=== PATIENT | male | born 1965 | race Caucasian/White ===

== ENCOUNTER 2018-06-05 12:39 | Observation (INO) | payer SELFPAY ==
[2018-06-05] MEDS ORDERED: Sodium Chloride 0.9% 2.5 ML Syringe FLUSH PRN (12:42)
[2018-06-05] MEDS ORDERED: Aspirin 81 MG Tab.Chew PO ONE (12:42)
[2018-06-05] MEDS ORDERED: Sodium Chloride 0.9% 10 ML Syringe FLUSH PRN (12:42)
--- NOTE | 2018-06-05 12:45 | EDM.PDOC ---
ED HPI GENERAL MEDICAL PROBLEM - General Stated Complaint: CHEST PAIN Time Seen by Provider: 06/05/18 12:41 - History of Present Illness INITIAL COMMENTS - FREE TEXT/NARRATIVE: HISTORY AND PHYSICAL: History of present illness: Patient 53-year-old male history of atrial fibrillation presents concern of chest pain he states he awoke with this vaguely described he states there is an exertional component with associated shortness of breath he denies diaphoresis nausea vomiting he denies other concern he states he was drinking quite a bit yesterday and feels this may have aggravated this Review of systems: As per history of present illness and below otherwise all systems reviewed and negative. Past medical history: As per history of present illness and as reviewed below otherwise noncontributory. Surgical history: As per history of present illness and as reviewed below otherwise noncontributory. Social history: No reported history of drug or alcohol abuse. Family history: As per history of present illness and as reviewed below otherwise noncontributory. Physical exam: HEENT: Atraumatic, normocephalic, pupils reactive, negative for conjunctival pallor or scleral icterus, mucous membranes moist, throat clear, neck supple, nontender, trachea midline. Lungs: Clear to auscultation, breath sounds equal bilaterally, chest nontender. Heart: S1S2, irregularly irregular, negative for clicks, rubs, or JVD. Abdomen: Soft, nondistended, nontender. Negative for masses or hepatosplenomegaly. Negative for costovertebral tenderness. Pelvis: Stable nontender. Genitourinary: Deferred. Rectal: Deferred. Extremities: Atraumatic, negative for cords or calf pain. Neurovascular unremarkable. Neuro: Awake, alert, oriented. Cranial nerves II through XII unremarkable. Cerebellum unremarkable. Motor and sensory unremarkable throughout. Exam nonfocal. Diagnostics: CBC CMP troponin PT/INR chest x-ray EKG Therapeutics: IV O2 monitor aspirin 324 mg Impression: #1 chest pain #2 history of atrial fibrillation Definitive disposition and diagnosis as appropriate pending reevaluation and review of above. Left Chest Pain Score (Numeric/FACES): 2 - Related Data Allergies Allergy/AdvReac Type Severity Reaction Status Date / Time No Known Allergies Allergy Verified 06/05/18 13:00 Home Meds: Home Meds Aspirin 325 mg PO DAILY 06/05/18 [History] Diltiazem HCl [Cartia Xt] 120 mg PO DAILY 06/05/18 [History] atorvaSTATin [Lipitor] 40 mg PO BEDTIME 06/05/18 [History] ED ROS GENERAL - Review of Systems Review Of Systems: ROS reveals no pertinent complaints other than HPI. ED EXAM, GENERAL - Physical Exam Exam: See Below (See dictation) Course - Vital Signs Last Recorded V/S: Last Vital Signs Temp 36.5 C 06/05/18 15:02 Pulse 126 H 06/05/18 16:19 Resp 18 06/05/18 15:02 BP 117/79 06/05/18 16:19 Pulse Ox 98 06/05/18 15:13 - Orders/Labs/Meds Orders: Active Orders 24 hr Category Date Time Status Patient Status [ADT] Stat ADT 06/05/18 13:40 Active Cardiac Monitoring [RC] Q8H Care 06/05/18 12:41 Active EKG Documentation Completion [RC] STAT Care 06/05/18 12:41 Active Sodium Chloride 0.9% [Saline Flush] Med 06/05/18 12:42 Active 10 ml FLUSH ASDIRECTED PRN Sodium Chloride 0.9% [Saline Flush] Med 06/05/18 12:42 Active 2.5 ml FLUSH ASDIRECTED PRN Saline Lock Insert [OM.PC] Stat Oth 06/05/18 12:41 Ordered Medication Orders Albuterol/Ipratropium (Duoneb 3.0-0.5 Mg/3 Ml) 3 ml NEB Q4HRRT PRN PRN Reason: Shortness Of Breath/wheezing Apixaban (Eliquis) 5 mg PO BID [facility] Last Admin: 06/05/18 16:22 Dose: 5 mg Aspirin (Aspirin) 325 mg PO DAILY [facility] Atorvastatin Calcium (Lipitor) 40 mg PO BEDTIME [facility] Diltiazem HCl (Cardizem Cd) 120 mg PO DAILY [facility] Diltiazem HCl (Cardizem Cd) 120 mg PO DAILY [facility] Last Admin: 06/05/18 16:19 Dose: 120 mg Morphine Sulfate (Morphine) 2 mg IVPUSH Q2H PRN PRN Reason: Pain (severe 7-10) Stop: 06/06/18 15:13 Oxycodone HCl (Oxycodone) 5 mg PO Q4H PRN PRN Reason: Pain (moderate 4-6) Sodium Chloride (Saline Flush) 10 ml FLUSH ASDIRECTED PRN PRN Reason: Keep Vein Open Sodium Chloride (Saline Flush) 2.5 ml FLUSH ASDIRECTED PRN PRN Reason: Keep Vein Open Labs: Laboratory Tests 06/05/18 06/05/18 06/05/18 Range/Units 12:50 12:50 12:50 WBC (4.0-11.0) K/uL RBC (4.50-5.90) M/uL Hgb (13.0-17.0) g/dL Hct (38.0-50.0) % MCV (80.0-98.0) fL MCH (27.0-32.0) pg MCHC (31.0-37.0) g/dL RDW Std Deviation (28.0-62.0) fl RDW Coeff of Adali (11.0-15.0) % Plt Count (150-400) K/uL MPV (7.40-12.00) fL Neut % (Auto) (48.0-80.0) % Lymph % (Auto) (16.0-40.0) % [place] % (Auto) (0.0-15.0) % Eos % (Auto) (0.0-7.0) % Baso % (Auto) (0.0-1.5) % Neut # (Auto) (1.4-5.7) K/uL Lymph # (Auto) (0.6-2.4) K/uL [place] # (Auto) (0.0-0.8) K/uL Eos # (Auto) (0.0-0.7) K/uL Baso # (Auto) (0.0-0.1) K/uL Nucleated RBC % /100WBC Nucleated RBCs # K/uL INR 1.01 Sodium 138 (136-148) mmol/L Potassium 3.6 (3.5-5.1) mmol/L Chloride 104 (98-107) mmol/L Carbon Dioxide 23.8 (21.0-32.0) mmol/L BUN 15 (7.0-18.0) mg/dL Creatinine 1.7 H (0.8-1.3) mg/dL Est Cr Clr Drug Dosing 47.25 mL/min Estimated GFR (MDRD) 42.1 ml/min Glucose 142 H (74-106) mg/dL Calcium 9.2 (8.5-10.1) mg/dL Total Bilirubin 0.7 (0.2-1.0) mg/dL AST 26 (15-37) IU/L ALT 34 (14-63) IU/L Alkaline Phosphatase 118 H (46-116) U/L Troponin I < 0.050 (0.000-0.056) ng/mL Total Protein 7.9 (6.4-8.2) g/dL Albumin 4.5 (3.4-5.0) g/dL Globulin 3.4 (2.0-3.5) g/dL Albumin/Globulin Ratio 1.3 (1.3-2.8) Triglycerides 121 (0-200) mg/dL Cholesterol 227 H (50-200) mg/dL LDL Cholesterol, Calc 138 (60-180) mg/dL VLDL Cholesterol 24 (5-55) mg/dL HDL Cholesterol 65 H (40-60) mg/dL Cholesterol/HDL Ratio 3.5 (3.3-6.0) / Range/Units 12:51 WBC 13.15 H (4.0-11.0) K/uL RBC 5.47 (4.50-5.90) M/uL Hgb 18.4 H (13.0-17.0) g/dL Hct 50.6 H (38.0-50.0) % MCV 92.5 (80.0-98.0) fL MCH 33.6 H (27.0-32.0) pg MCHC 36.4 (31.0-37.0) g/dL RDW Std Deviation 44.6 (28.0-62.0) fl RDW Coeff of Adali 13 (11.0-15.0) % Plt Count 290 (150-400) K/uL MPV 10.00 (7.40-12.00) fL Neut % (Auto) 80.4 H (48.0-80.0) % Lymph % (Auto) 10.3 L (16.0-40.0) % [place] % (Auto) 8.2 (0.0-15.0) % Eos % (Auto) 0.8 (0.0-7.0) % Baso % (Auto) 0.3 (0.0-1.5) % Neut # (Auto) 10.6 H (1.4-5.7) K/uL Lymph # (Auto) 1.4 (0.6-2.4) K/uL [place] # (Auto) 1.1 H (0.0-0.8) K/uL Eos # (Auto) 0.1 (0.0-0.7) K/uL Baso # (Auto) 0.0 (0.0-0.1) K/uL Nucleated RBC % 0.0 /100WBC Nucleated RBCs # 0 K/uL INR Sodium (136-148) mmol/L Potassium (3.5-5.1) mmol/L Chloride (98-107) mmol/L Carbon Dioxide (21.0-32.0) mmol/L BUN (7.0-18.0) mg/dL Creatinine (0.8-1.3) mg/dL Est Cr Clr Drug Dosing mL/min Estimated GFR (MDRD) ml/min Glucose (74-106) mg/dL Calcium (8.5-10.1) mg/dL Total Bilirubin (0.2-1.0) mg/dL AST (15-37) IU/L ALT (14-63) IU/L Alkaline Phosphatase (46-116) U/L Troponin I (0.000-0.056) ng/mL Total Protein (6.4-8.2) g/dL Albumin (3.4-5.0) g/dL Globulin (2.0-3.5) g/dL Albumin/Globulin Ratio (1.3-2.8) Triglycerides (0-200) mg/dL Cholesterol (50-200) mg/dL LDL Cholesterol, Calc (60-180) mg/dL VLDL Cholesterol (5-55) mg/dL HDL Cholesterol (40-60) mg/dL Cholesterol/HDL Ratio (3.3-6.0) Meds: Medications Generic Name Dose Route Start Last Admin Trade Name Freq PRN Reason Stop Dose Admin Albuterol/Ipratropium 3 ml 06/05/18 15:12 Duoneb 3.0-0.5 Mg/3 Ml NEB Q4HRRT PRN Shortness Of Breath/wheezing Apixaban 5 mg 06/05/18 16:30 06/05/18 16:22 Eliquis PO 5 mg BID [facility] Administration Aspirin 325 mg 06/06/18 09:00 Aspirin PO DAILY [facility] Atorvastatin Calcium 40 mg 06/05/18 21:00 Lipitor PO BEDTIME [facility] Diltiazem HCl 120 mg 06/06/18 09:00 Cardizem Cd PO DAILY [facility] Diltiazem HCl 120 mg 06/05/18 16:15 06/05/18 16:19 Cardizem Cd PO 120 mg DAILY [facility] Administration Morphine Sulfate 2 mg 06/05/18 15:12 Morphine IVPUSH 06/06/18 15:13 Q2H PRN Pain (severe 7-10) Oxycodone HCl 5 mg 06/05/18 15:12 Oxycodone PO Q4H PRN Pain (moderate 4-6) Sodium Chloride 10 ml 06/05/18 12:42 Saline Flush FLUSH ASDIRECTED PRN Keep Vein Open Sodium Chloride 2.5 ml 06/05/18 12:42 Saline Flush FLUSH ASDIRECTED PRN Keep Vein Open Discontinued Medications Generic Name Dose Route Start Last Admin Trade Name Freq PRN Reason Stop Dose Admin Aspirin 324 mg 06/05/18 12:42 06/05/18 13:10 Aspirin PO 06/05/18 12:43 324 mg ONETIME ONE Administration Diltiazem HCl 20 mg 06/05/18 13:40 06/05/18 13:47 Diltiazem IVPUSH 06/05/18 13:41 20 mg ONETIME ONE Administration Sodium Chloride 1,000 mls @ 999 mls/hr 06/05/18 13:53 06/05/18 14:08 Normal Saline IV 06/05/18 14:53 999 mls/hr STAT ONE Administration Departure - Departure Time of Disposition: 16:36 Disposition: Admitted As Inpatient 64 Condition: Good Clinical Impression: Atypical chest pain, Atrial fibrillation with rapid ventricular response - Discharge Information - My Orders Last 24 Hours: My Active Orders 06/05/18 12:41 Cardiac Monitoring [RC] Q8H EKG Documentation Completion [RC] STAT Saline Lock Insert [OM.PC] Stat 06/05/18 12:42 Sodium Chloride 0.9% [Saline Flush] 10 ml FLUSH ASDIRECTED PRN Sodium Chloride 0.9% [Saline Flush] 2.5 ml FLUSH ASDIRECTED PRN 06/05/18 13:40 Patient Status [ADT] Stat - Assessment/Plan Last 24 Hours: My Active Orders 06/05/18 12:41 Cardiac Monitoring [RC] Q8H EKG Documentation Completion [RC] STAT Saline Lock Insert [OM.PC] Stat 06/05/18 12:42 Sodium Chloride 0.9% [Saline Flush] 10 ml FLUSH ASDIRECTED PRN Sodium Chloride 0.9% [Saline Flush] 2.5 ml FLUSH ASDIRECTED PRN 06/05/18 13:40 Patient Status [ADT] Stat
[2018-06-05 13:30] LABS: CHLORIDE,CL 104 mmol/L (98-107); SODIUM,NA 138 mmol/L (136-148)
--- NOTE | 2018-06-05 13:36 | CR ---
EXAMINATION: Portable chest radiograph. HISTORY: Shortness of breath. FINDINGS: The trachea is midline. The cardiomediastinal silhouette is within normal limits. No pulmonary infilt rates, effusions or pneumothorax. Mild interstitial prominence. Osseous structures appear unremarkable. IMPRESSION: No acute cardiopulmonary process.
[2018-06-05] MEDS ORDERED: Diltiazem 25 MG/5 ML SDV IVPUSH ONE (13:40)
[2018-06-05] MEDS ORDERED: Sodium Chloride 0.9% 1,000 ML IV ONE (13:53)
[2018-06-05] MEDS ORDERED: Albuterol/Ipratropium 3.0-0.5 MG/3 ML Neb Soln NEB PRN (15:12)
[2018-06-05] MEDS ORDERED: oxyCODONE 5 MG Tab PO PRN (15:12)
[2018-06-05] MEDS ORDERED: Morphine 2 MG/ML Syringe IVPUSH PRN (15:12)
[2018-06-05] MEDS: Diltiazem 120 MG Cap.CD PO SCH (16:19)
[2018-06-05] MEDS: Apixaban 5 MG Tab PO SCH ×2 (16:22→20:44)
[2018-06-05] MEDS ORDERED: Metoprolol Tartrate 5 MG/5 ML SDV IVPUSH PRN (17:30)
[2018-06-05] MEDS ORDERED: Digoxin 500 MCG/2 ML Amp IVPUSH ONE (18:22)
[2018-06-05] MEDS ORDERED: MVI, Adult with Vitamin K 10 ML, Thiamine 100 MG, Folic Acid 1 MG in Sodium Chloride 0.... IV ONE ×4 (18:24)
[2018-06-05] MEDS ORDERED: Sodium Chloride 0.9% 1,000 ML IV SCH (18:30)
[2018-06-05] MEDS ORDERED: LORazepam 2 MG/ML SDV IVPUSH PRN ×2 (20:38→21:13)
[2018-06-05] MEDS ORDERED: atorvaSTATin 40 MG Tab PO SCH (21:00)
--- NOTE | 2018-06-05 23:58 | PCM.SN ---
- Free Text/Narrative Note: [id number]
--- NOTE | 2018-06-06 01:01 | HP ---
DATE OF : 1965 PRIMARY CARE PHYSICIAN: Unknown PCP HISTORY OF PRESENT ILLNESS: The patient is a 53 years old man presented to emergency room because he felt lightheaded today, and he had chest pain around his heart and felt his heart was pounding. His symptoms started when he woke up. There had no radiation of the chest pain. The patient states that yesterday he drank a pint of vodka with 2 L of Mountain Dew. He works mowing lawns and he had a friend who brought him to hospital. He had chest pain all morning on and off. It was like squeezing his heart The patient has history of atrial fibrillation since 2007, and currently he is not on any anticoagulation and his heart rate is controlled with diltiazem 120 mg a day. He did not have any other of Afib with RVR that he is aware since 3 years ago unless he forgets to take his medication REVIEW OF SYSTEMS: A 12-point review of system is negative except as in history of present illness. PAST MEDICAL HISTORY: 1. Atrial fibrillation. 2. Hyperlipidemia. PAST SURGICAL HISTORY: He has detached retina left eye and the attachment and currently he suffers double vision. He has headache and sometimes he flickering on his visual field.. SOCIAL HISTORY: He does not smoke. Alcohol use occasionally, and the last drink was yesterday. He used mostly beer every couple of days and the patient says that he does not suffer from withdrawal. Drugs, none. FAMILY HISTORY: His mom suffered from rheumatoid arthritis, and his father had heart disease and of heart failure at age 64. PHYSICAL EXAMINATION: VITAL SIGNS: At admission, the patient had a temperature of 36.5, pulse 126, and respiratory rate 18, blood pressure 117/79, pulse oximetry 98. HEENT: Head is atraumatic and normocephalic. Pupils equally reactive to light. NECK: Supple. No lymphadenopathy. No thyromegaly. HEART: S1 and S2. Irregular rhythm and rate. Tachycardic. LUNGS: Clear to auscultation bilaterally. ABDOMEN: Soft, nontender. Positive bowel sounds. EXTREMITIES: No edema. NEUROLOGIC: The patient is alert and oriented x3. There is no gross neurological deficits. LABORATORY DATA: At admission his WBC 13.15, hemoglobin 18.4, hematocrit 50.6, and platelet count is 290. INR is 1.01. Sodium 138, potassium 2.6, chloride 108, carbon dioxide 23.8, BUN 15, creatinine is 1.7, glucose 142, calcium 9.2, total bilirubin 0.7, AST 26, ALT 34, alkaline phosphatase 118. Troponin less than 0.050. Total protein 7.9, albumin 4.5, globulin 3.4, and triglycerides 121, total cholesterol 227, LDL 138, VLDL 24, HDL 65. Toxicology is negative, ethyl alcohol is less than 3. EKG show a supraventricular tachycardia at 169, ventricular premature complex, with short NH interval QTc 468, QT 278, QRS 84, NH 152 ASSESSMENT AND PLAN: Atrial fibrillation with rapid ventricular rate. We will admit the patient to medical floor and we will give the patient Cardizem 120 mg p.o. one dose. Currently, his heart rate is 120 after he received CARDIAZEM IV in ER . We will call Cardiology consult. We will also start the patient on apixaban 5 mg p.o. b.i.d. We will order cardiac echo and if the patient continues to have heart rate more than 130, we will transfer the patient to ICU for Cardiazem drip unless Cardiology will manage patient on the floor . For chest pain RR/O ACS, the patient received aspirin 324 mg p.o. one time in the emergency room. We will follow up lipid profile and hemoglobin A1c, monitor troponins, and we will monitor the patient in telemetry. We will control the heart rate. For deep vein thrombosis prophylaxis, the patient was started on apixaban 5 mg p.o. b.i.d. For alcohol abuse, the patient will be started on CIWA protocol and also we will give patient a banana bag. NADEEM / MONICA /[id number] TETE
[2018-06-06 02:21] LABS: CHLORIDE,CL 107 mmol/L (98-107); SODIUM,NA 140 mmol/L (136-148)
[2018-06-06] MEDS ORDERED: Digoxin 250 MCG Tab PO SCH (09:00)
[2018-06-06] MEDS ORDERED: Aspirin 325 MG Tab PO SCH (09:00)
[2018-06-06] MEDS ORDERED: Diltiazem 120 MG Cap.CD PO SCH (09:00)
[2018-06-06] MEDS: Apixaban 5 MG Tab PO SCH (09:37)
[2018-06-06] MEDS: Diltiazem 120 MG Cap.CD PO SCH (09:37)
--- NOTE | 2018-06-06 09:44 | CONS ---
DATE OF CONSULTATION: DATE OF : 1965 PRIMARY CARE PHYSICIAN: Unknown PCP REASON FOR CONSULTATION: Atrial fibrillation with RVR. HISTORY OF PRESENT ILLNESS: This is a 53-year-old male, who has a history of chronic persistent atrial fibrillation, hyperlipidemia, alcoholic abuse, as well as he came into the emergency room because of feeling of palpitations and heart racing that woke him up this morning. He stated that he felt mild chest pain with the heart racing as well. He feels like some squeezing on the left-sided chest wall, did not radiate. He feels some shortness of breath, but no passing out. He feels some dizziness. When he came to the emergency room, he was found to have atrial fibrillation with RVR with a heart rate of 175, and he was given Cardizem 20 IV, his heart rate down to 70, however, the blood pressure also dropping, and he was admitted to the hospital. We did not have the prior EKG to compare, however, he stated that he was told that he had an atrial fibrillation since 2007, and he came to the emergency room one time, not here in [place] in 2014 for atrial fibrillation and dizziness. He denied history of a cardioversion in the past. He also saw a child watch attendant last time few months ago in [place], and he was told that everything was fine, nothing changed. His medications at home including simvastatin, aspirin, Cardizem 120 once a day, and he stated that he has a treadmill stress test in the past as well as a heart monitor, but he denied having the blockage, heart attack or having the angiogram in the past. He has never been on Coumadin. He stated that he drinks pretty much every day, three or four beers a day, he stated that ranging between 25 ounces to 40 ounces a day and on the weekend he drinks a lot more, and the night before the day of admission, he was drinking 2 L of Mountain Dew as well as one pint of vodka, mixing altogether and drinking all alone. SOCIAL HISTORY: He is drinking alcohol every day and he lives in a sober house in [place]. He is just here for work and he will be going back in August. Smoking, he denies smoking. He denied drug use as well. PAST MEDICAL HISTORY: Including hyperlipidemia, chronic persistent atrial fibrillation. FAMILY HISTORY: Father had a history of heart failure, hyperlipidemia. Mother has a history of stroke. PHYSICAL EXAMINATION: VITAL SIGNS: Initial blood pressure is 82/57 with a heart rate of 175, but is improving to 124/77 with a heart rate of 117 after Cardizem IV push 20 mg, and O2 saturation is 97 to 98 on room air, temperature is 36.8, respiration is 18. HEENT: Not pale. No jaundice. Mouth, dry. No JVD. HEART: Normal S1, S2. Tachycardia. Totally irregular. LUNGS: Clear. No crackles. No wheezing. ABDOMEN: Soft, nontender. Bowel sounds are present. No hepatosplenomegaly. LEGS: No edema. LABORATORY INVESTIGATION: CBC showed WBC 13, hematocrit of 50, hemoglobin of 18, platelet 290. INR 1.01. Sodium 138, potassium 3.6, chloride 104, bicarb 23, BUN 15, creatinine 1.7. A1c 5.4. Troponin was negative x1. Total cholesterol 227, LDL is 138, HDL 65. Alcohol is negative. Urine drug screening is negative as well. EKG show atrial fibrillation with RVR. CURRENT MEDICATIONS: Including, 1. Eliquis was started in the hospital, 5 mg twice a day. 2. As well as Cardizem 120 mg p.o. one time dose. This is a 53-year-old male, alcoholic abuse, presented to hospital with history of hyperlipidemia and chronic persistent atrial fibrillation, presented to the hospital with atrial fibrillation with RVR. Unclear of prior cardiac history, but we will do the rate control for now, I agree with the anticoagulation with Eliquis 5 twice a day. I am not certain about his compliance to the medication. I would lean toward more on the rate control approach for him and we will add one more digoxin 250 once a day. His atrial fibrillation with RVR could be contributed by alcohol abuse as well as the caffeine consumption. I will also recommend a troponin cycle, cycling cardiac troponin as well as doing the echocardiogram. He looks dehydrated to me. He needs to be hydrated with IV fluids with a banana bags as well. His A1c is 5.4. LUZ ANDERSON /[id number]
--- NOTE | 2018-06-06 20:43 | PCM.DCSUM1 ---
Discharge Summary - Hospital Course Diagnosis: Stroke: No - Discharge Data Discharge Disposition: Home, Self-Care 01 Condition: Stable - Patient Summary/Data Consults: Consultations 06/05/18 17:27 Consult to Physician [CONS] Routine - Patient Instructions Diet: Usual Diet as Tolerated Activity: As Tolerated Driving: May Drive Today - Discharge Plan Home Medications: Home Meds Aspirin 325 mg PO DAILY 06/05/18 [History] Diltiazem HCl [Cartia Xt] 120 mg PO DAILY 06/05/18 [History] atorvaSTATin [Lipitor] 40 mg PO BEDTIME 06/05/18 [History] Patient Handouts: Nonspecific Chest Pain, [id number] Referrals: Paz Pineda MD [Physician] - 06/30/18 8:00 am Martín Dickson MD [Physician] - 06/23/18 9:00 am - Patient Data Vitals - Most Recent: Last Vital Signs Temp 98.1 F 06/06/18 12:00 Pulse 83 06/06/18 12:00 Resp 20 06/06/18 12:00 BP 114/82 06/06/18 12:00 Pulse Ox 97 06/06/18 12:00 Weight - Most Recent: 330 lb 11.094 oz I&O - Last 24 hours: Intake & Output 06/06/18 06/06/18 06/06/18 06:59 14:59 22:59 Intake Total 2382 Output Total 200 Balance 2182 Lab Results - Last 24 hrs: Laboratory Results - last 24 hr 06/05/18 06/06/18 06/06/18 Range/Units 21:34 01:15 01:15 WBC 7.81 (4.0-11.0) K/uL RBC 4.22 L (4.50-5.90) M/uL Hgb 14.2 (13.0-17.0) g/dL Hct 40.2 (38.0-50.0) % MCV 95.3 (80.0-98.0) fL MCH 33.6 H (27.0-32.0) pg MCHC 35.3 (31.0-37.0) g/dL RDW Std Deviation 43.2 (28.0-62.0) fl RDW Coeff of Adali 13 (11.0-15.0) % Plt Count 211 (150-400) K/uL MPV 9.50 (7.40-12.00) fL Neut % (Auto) 57.7 (48.0-80.0) % Lymph % (Auto) 28.7 (16.0-40.0) % Andrew % (Auto) 9.9 (0.0-15.0) % Eos % (Auto) 3.3 (0.0-7.0) % Baso % (Auto) 0.4 (0.0-1.5) % Neut # (Auto) 4.5 (1.4-5.7) K/uL Lymph # (Auto) 2.2 (0.6-2.4) K/uL Andrew # (Auto) 0.8 (0.0-0.8) K/uL Eos # (Auto) 0.3 (0.0-0.7) K/uL Baso # (Auto) 0.0 (0.0-0.1) K/uL Sodium 140 (136-148) mmol/L Potassium 4.0 (3.5-5.1) mmol/L Chloride 107 (98-107) mmol/L Carbon Dioxide 27.2 (21.0-32.0) mmol/L BUN 20 H (7.0-18.0) mg/dL Creatinine 1.2 (0.8-1.3) mg/dL Est Cr Clr Drug Dosing 72.95 mL/min Estimated GFR (MDRD) > 60.0 ml/min Glucose 100 (74-106) mg/dL Hemoglobin A1c (4.5-6.2) % Calcium 8.3 L (8.5-10.1) mg/dL Total Bilirubin 0.2 (0.2-1.0) mg/dL AST 15 (15-37) IU/L ALT 24 (14-63) IU/L Alkaline Phosphatase 88 (46-116) U/L Troponin I (0.000-0.056) ng/mL Total Protein 5.5 L (6.4-8.2) g/dL Albumin 3.1 L (3.4-5.0) g/dL Globulin 2.4 (2.0-3.5) g/dL Albumin/Globulin Ratio 1.3 (1.3-2.8) Urine Opiates Screen NEGATIVE (NEGATIVE) Ur Oxycodone Screen NEGATIVE (NEGATIVE) Urine Methadone Screen NEGATIVE (NEGATIVE) Ur Barbiturates Screen NEGATIVE (NEGATIVE) Ur Phencyclidine Scrn NEGATIVE (NEGATIVE) Ur Amphetamine Screen NEGATIVE (NEGATIVE) U Methamphetamines Scrn NEGATIVE (NEGATIVE) U Benzodiazepines Scrn NEGATIVE (NEGATIVE) U Cocaine Metab Screen NEGATIVE (NEGATIVE) U Marijuana (THC) Screen NEGATIVE (NEGATIVE) 06/06/18 06/06/18 Range/Units 01:15 01:15 WBC (4.0-11.0) K/uL RBC (4.50-5.90) M/uL Hgb (13.0-17.0) g/dL Hct (38.0-50.0) % MCV (80.0-98.0) fL MCH (27.0-32.0) pg MCHC (31.0-37.0) g/dL RDW Std Deviation (28.0-62.0) fl RDW Coeff of Adali (11.0-15.0) % Plt Count (150-400) K/uL MPV (7.40-12.00) fL Neut % (Auto) (48.0-80.0) % Lymph % (Auto) (16.0-40.0) % Andrew % (Auto) (0.0-15.0) % Eos % (Auto) (0.0-7.0) % Baso % (Auto) (0.0-1.5) % Neut # (Auto) (1.4-5.7) K/uL Lymph # (Auto) (0.6-2.4) K/uL Andrew # (Auto) (0.0-0.8) K/uL Eos # (Auto) (0.0-0.7) K/uL Baso # (Auto) (0.0-0.1) K/uL Sodium (136-148) mmol/L Potassium (3.5-5.1) mmol/L Chloride (98-107) mmol/L Carbon Dioxide (21.0-32.0) mmol/L BUN (7.0-18.0) mg/dL Creatinine (0.8-1.3) mg/dL Est Cr Clr Drug Dosing mL/min Estimated GFR (MDRD) ml/min Glucose (74-106) mg/dL Hemoglobin A1c 5.4 (4.5-6.2) % Calcium (8.5-10.1) mg/dL Total Bilirubin (0.2-1.0) mg/dL AST (15-37) IU/L ALT (14-63) IU/L Alkaline Phosphatase (46-116) U/L Troponin I < 0.050 (0.000-0.056) ng/mL Total Protein (6.4-8.2) g/dL Albumin (3.4-5.0) g/dL Globulin (2.0-3.5) g/dL Albumin/Globulin Ratio (1.3-2.8) Urine Opiates Screen (NEGATIVE) Ur Oxycodone Screen (NEGATIVE) Urine Methadone Screen (NEGATIVE) Ur Barbiturates Screen (NEGATIVE) Ur Phencyclidine Scrn (NEGATIVE) Ur Amphetamine Screen (NEGATIVE) U Methamphetamines Scrn (NEGATIVE) U Benzodiazepines Scrn (NEGATIVE) U Cocaine Metab Screen (NEGATIVE) U Marijuana (THC) Screen (NEGATIVE) Med Orders - Current: Current Medications Discontinued Medications Albuterol/Ipratropium (Duoneb 3.0-0.5 Mg/3 Ml) 3 ml NEB Q4HRRT PRN PRN Reason: Shortness Of Breath/wheezing Apixaban (Eliquis) 5 mg PO BID [facility] Last Admin: 06/06/18 09:37 Dose: 5 mg Aspirin (Aspirin) 324 mg PO ONETIME ONE Stop: 06/05/18 12:43 Last Admin: 06/05/18 13:10 Dose: 324 mg Aspirin (Aspirin) 325 mg PO DAILY [facility] Last Admin: 06/06/18 09:37 Dose: 325 mg Atorvastatin Calcium (Lipitor) 40 mg PO BEDTIME [facility] Last Admin: 06/05/18 20:44 Dose: 40 mg Atorvastatin Calcium (Lipitor) 20 mg PO BEDTIME [facility] Digoxin (Lanoxin) 250 mcg PO DAILY [facility] Last Admin: 06/06/18 09:37 Dose: 250 mcg Digoxin (Lanoxin) 250 mcg IVPUSH ONETIME ONE Stop: 06/05/18 18:23 Last Admin: 06/05/18 18:36 Dose: 250 mcg Diltiazem HCl (Diltiazem) 20 mg IVPUSH ONETIME ONE Stop: 06/05/18 13:41 Last Admin: 06/05/18 13:47 Dose: 20 mg Diltiazem HCl (Cardizem Cd) 120 mg PO DAILY [facility] Diltiazem HCl (Cardizem Cd) 120 mg PO DAILY [facility] Last Admin: 06/06/18 09:37 Dose: 120 mg Sodium Chloride (Normal Saline) 1,000 mls @ 999 mls/hr IV STAT ONE Stop: 06/05/18 14:53 Last Admin: 06/05/18 14:08 Dose: 999 mls/hr Multivitamins/Minerals 10 ml/Thiamine HCl 100 mg/ Folic Acid 1 mg/ Sodium Chloride 1,011.2 mls @ 75 mls/hr IV ONETIME ONE Stop: 06/06/18 07:52 Last Admin: 06/05/18 19:43 Dose: 75 mls/hr Sodium Chloride (Normal Saline) 1,000 mls @ 75 mls/hr IV ASDIRECTED ANUP Stop: 06/06/18 08:00 Last Admin: 06/05/18 18:39 Dose: 75 mls/hr Lorazepam (Ativan) 0 mg IVPUSH Q4H PRN; Protocol PRN Reason: Agitation Lorazepam (Ativan) 0 mg IVPUSH Q4H PRN; Protocol PRN Reason: Agitation Metoprolol Tartrate (Lopressor) 5 mg IVPUSH ASDIRECTED PRN PRN Reason: afib Last Admin: 06/05/18 17:43 Dose: 5 mg Morphine Sulfate (Morphine) 2 mg IVPUSH Q2H PRN PRN Reason: Pain (severe 7-10) Stop: 06/06/18 15:13 Oxycodone HCl (Oxycodone) 5 mg PO Q4H PRN PRN Reason: Pain (moderate 4-6) Sodium Chloride (Saline Flush) 10 ml FLUSH ASDIRECTED PRN PRN Reason: Keep Vein Open Sodium Chloride (Saline Flush) 2.5 ml FLUSH ASDIRECTED PRN PRN Reason: Keep Vein Open
[2018-06-06] MEDS ORDERED: atorvaSTATin 20 MG Tab PO SCH (21:00)
--- NOTE | 2018-06-08 13:46 | ECHO ---
EXAM DATE: 06/05/18 PATIENT'S AGE: 53 The echocardiogram report can be seen in this patient's EMR (Electronic Medical Record) in the Reports section. The report has also been scanned into PACs. TETE
== END 2018-06-06 14:20 | disposition home or self-care (01) ==
LOC: MW.ED 12:39 → MW.MS 14:57
PROVIDERS: ADMIT Internal Medicine; ATTEND Internal Medicine
DX: R07.9 Chest pain, unspecified (principal); I48.2 Chronic atrial fibrillation; E78.5 Hyperlipidemia, unspecified; Z79.82 Long term (current) use of aspirin; Z79.899 Other long term (current) drug therapy; Z82.49 Family history of ischemic heart disease and other diseases of the circulatory system
CPT/HCPCS: 36415; 71045; 80053; 80061; 80305; 83036; 84484; 85025; 85610; 93005; 93306; 96361; 96374; 96375; 99285; A9270; G0378; G0480; J1160; J3411; J3490; J7040; 99284

== ENCOUNTER 2018-07-04 12:46 | Emergency (ER) | payer MEDICAID ==
[2018-07-04] MEDS ORDERED: MVI, Adult with Vitamin K 10 ML, Thiamine 100 MG, Folic Acid 1 MG, Magnesium Sulfate 2 ... IV ONE ×5 (13:01)
[2018-07-04] MEDS ORDERED: Sodium Chloride 0.9% 2.5 ML Syringe FLUSH PRN (13:01)
[2018-07-04] MEDS ORDERED: Sodium Chloride 0.9% 1,000 ML IV ONE (13:01)
[2018-07-04] MEDS ORDERED: Sodium Chloride 0.9% 10 ML Syringe FLUSH PRN (13:01)
--- NOTE | 2018-07-04 13:04 | EDM.PDOC ---
ED HPI GENERAL MEDICAL PROBLEM - General Chief Complaint: Chest Pain Stated Complaint: UNKNOWN ISSUES Time Seen by Provider: 07/04/18 12:52 - History of Present Illness INITIAL COMMENTS - FREE TEXT/NARRATIVE: HISTORY AND PHYSICAL: History of present illness: The patient is a 53-year-old male with a known history of long-standing A. fib hyperlipidemia and alcohol use/abuse who was admitted to our hospital on June 05 as an observation for A. fib with RVR and chest pain. I reviewed that admission which included consultation with our site physician and echocardiogram revealing an EF of 65-70% and some mild valvular changes. The patient ruled out and was placed on Eliquis by our hospitalist, which he did not fill the prescription for because it was too expensive, and also digoxin which he has been taking along with his Cardizem. The patient presents today stating that despite his long-standing history of alcohol use and abuse he decided that he was going to quit alcohol drinking on Tuesday night, to go. He says that since that time he has had very low energy and has been trying to eat properly eating bananas and healthy food and pushing hydration but he feels like he has no energy and is laying in bed all day. He told the triage nurse that he was having intermittent chest pain which he is very vague about and some shortness of breath but on my evaluation he denied that he was having chest pain but he says that he had diffuse body aches and even moving in bed was causing discomfort in his chest and throughout his body. He has not had abdominal pain vomiting or diarrhea and no urinary complaints. He has not had any recent trauma and has no bony extremity pain neck pain or back pain. He has not had a headache fevers or chills. Patient also says that since his last admission he has significantly reduced his caffeine intake. He says that he intermittently has been feeling lightheaded and took his blood pressure prior to coming here which she says the top number was in the 80s and that is not normal for him. He did not pass out or blackout. On my evaluation he mostly complains of the diffuse body aches without focality and having no energy and feeling very drained for which he is concerned about. He has not followed up with a provider in the clinic since his last admission. Again when I push him on the chest pain he has very the in his description and does not say specifically that his left or right and is more with movement and feels more achy. Review of systems: As per history of present illness and below otherwise all systems reviewed and negative. Past medical history: As per history of present illness and as reviewed below otherwise noncontributory. Surgical history: As per history of present illness and as reviewed below otherwise noncontributory. Social history: No reported history of drug or alcohol abuse. Family history: As per history of present illness and as reviewed below otherwise noncontributory. Physical exam: General: Well-developed well-nourished thin man who is nontoxic and vital signs are noted by me. HEENT: Atraumatic, normocephalic, pupils reactive, negative for conjunctival pallor or scleral icterus, mucous membranes moist, throat clear, neck supple, nontender, trachea midline. Lungs: Clear to auscultation, breath sounds equal bilaterally, chest nontender. Heart: S1S2, regular, negative for clicks, rubs, or JVD. Abdomen: Soft, nondistended, nontender. Negative for masses or hepatosplenomegaly. NABS. Pelvis: Stable nontender. Genitourinary: Deferred. Rectal: Deferred. Extremities: Atraumatic, negative for cords or calf pain. Neurovascular unremarkable. Full range of motion without any defects or deficits Neuro: Awake, alert, oriented. Cranial nerves II through XII unremarkable. Cerebellum unremarkable. Motor and sensory unremarkable throughout. Exam nonfocal. There is no evidence of any tremulousness and patient moves easily in the ED and speaks clearly and without any verbal changes Diagnostics: EKG CBC CMP magnesium level TSH UA digoxin level troponin INR alcohol level chest x-ray Therapeutics: IV O2 monitor IV fluids aspirin banana bag Dr. Gold our site physician was consulted at 1420 and the fact that the patient was unable to afford his elbow course was discussed. As the patient is currently in sinus rhythm he does not feel that anticoagulation should be started at this time and he is happy to follow-up this patient if the patient chooses. I will discuss this under sedation with the patient The patient is aware of all testing results and after IV fluids he is feeling much improved and his comfortable with discharge home. Advised him on reasons to return to the ED and need for follow-up and he says he has seen one of our clinic providers in the past Impression: Generalized malaise body aches and weakness, mild dehydration, history of A. fib spontaneously converted, history of alcohol and caffeine use improved Definitive disposition and diagnosis as appropriate pending reevaluation and review of above. chest pain Pain Score (Numeric/FACES): 5 - Related Data Allergies Allergy/AdvReac Type Severity Reaction Status Date / Time No Known Allergies Allergy Verified 07/04/18 12:48 Home Meds: Home Meds Diltiazem HCl [Cartia Xt] 120 mg PO DAILY 06/05/18 [History] atorvaSTATin [Lipitor] 40 mg PO BEDTIME 06/05/18 [History] Apixaban [Eliquis] 5 mg PO BID 07/04/18 [History] Digoxin 250 mcg PO DAILY 07/04/18 [History] Past Medical History HEENT History: Reports: None Cardiovascular History: Reports: Afib, High Cholesterol Musculoskeletal History: Reports: Fracture - Past Surgical History HEENT Surgical History: Reports: Tonsillectomy Cardiovascular Surgical History: Reports: None Other Musculoskeletal Surgeries/Procedures:: fx R hand, L 5th digit Social & Family History - Family History Family Medical History: Noncontributory Cardiac: Reports: Heart Failure, [place] Neurological: Reports: CVA Psychiatric: Reports: None Endocrine/Metabolic: Reports: None Dermatologic: Reports: None - Tobacco Use Smoking Status *Q: Never Smoker Second Hand Smoke Exposure: No - Caffeine Use Caffeine Use: Reports: Soda, Tea - Alcohol Use Days Per Week of Alcohol Use: 5 Number of Drinks Per Day: 1 Total Drinks Per Week: 5 - Recreational Drug Use Recreational Drug Use: No ED ROS GENERAL - Review of Systems Review Of Systems: ROS reveals no pertinent complaints other than HPI. ED EXAM, GENERAL - Physical Exam Exam: See Below (See dictation) Course - Vital Signs Last Recorded V/S: Last Vital Signs Temp 36.0 C 07/04/18 12:49 Pulse 84 07/04/18 12:49 Resp 13 07/04/18 12:49 BP 125/81 07/04/18 12:49 Pulse Ox 99 07/04/18 12:49 - Orders/Labs/Meds Orders: Active Orders 24 hr Category Date Time Status Blood Glucose Check, Bedside [RC] ONETIME Care 07/04/18 12:59 Active Cardiac Monitoring [RC] . DIRECTED Care 07/04/18 12:59 Active EKG Documentation Completion [RC] STAT Care 07/04/18 12:59 Active Oxygen Therapy, ED [RC] ASDIRECTED Care 07/04/18 12:59 Active Pulse Oximetry [RC] ASDIRECTED Care 07/04/18 12:59 Active UA W/MICROSCOPIC [URIN] Stat Lab 07/04/18 14:00 Ordered MVI, Adult with Vitamin K [Infuvite Adult] 10 ml Med 07/04/18 13:01 Active Thiamine [Vitamin B-1] 100 mg Folic Acid 1 mg Magnesium Sulfate [Magnesium Sulfate 50%] 2 gm Sodium Chloride 0.9% [Normal Saline] 1,000 ml IV ONETIME Sodium Chloride 0.9% [Saline Flush] Med 07/04/18 13:01 Active 10 ml FLUSH ASDIRECTED PRN Sodium Chloride 0.9% [Saline Flush] Med 07/04/18 13:01 Active 2.5 ml FLUSH ASDIRECTED PRN Saline Lock Insert [OM.PC] Stat Oth 07/04/18 12:59 Ordered Medication Orders Multivitamins/Minerals 10 ml/Thiamine HCl 100 mg/ Folic Acid 1 mg/ Magnesium Sulfate 2 gm/ Sodium Chloride 1,015.2 mls @ 150 mls/hr IV ONETIME ONE Stop: 07/04/18 19:47 Last Admin: 07/04/18 13:24 Dose: 150 mls/hr Sodium Chloride (Saline Flush) 10 ml FLUSH ASDIRECTED PRN PRN Reason: Keep Vein Open Sodium Chloride (Saline Flush) 2.5 ml FLUSH ASDIRECTED PRN PRN Reason: Keep Vein Open Labs: Laboratory Tests 07/04/18 07/04/18 07/04/18 Range/Units 12:50 12:50 12:50 WBC 4.57 (4.0-11.0) K/uL RBC 5.55 (4.50-5.90) M/uL Hgb 19.0 H (13.0-17.0) g/dL Hct 51.7 H (38.0-50.0) % MCV 93.2 (80.0-98.0) fL MCH 34.2 H (27.0-32.0) pg MCHC 36.8 (31.0-37.0) g/dL RDW Std Deviation 44.5 (28.0-62.0) fl RDW Coeff of Adali 13 (11.0-15.0) % Plt Count 153 (150-400) K/uL MPV 10.30 (7.40-12.00) fL Neut % (Auto) 66.3 (48.0-80.0) % Lymph % (Auto) 21.0 (16.0-40.0) % Whitman % (Auto) 12.5 (0.0-15.0) % Eos % (Auto) 0.0 (0.0-7.0) % Baso % (Auto) 0.2 (0.0-1.5) % Neut # (Auto) 3.0 (1.4-5.7) K/uL Lymph # (Auto) 1.0 (0.6-2.4) K/uL Whitman # (Auto) 0.6 (0.0-0.8) K/uL Eos # (Auto) 0.0 (0.0-0.7) K/uL Baso # (Auto) 0.0 (0.0-0.1) K/uL Nucleated RBC % 0.0 /100WBC Nucleated RBCs # 0 K/uL INR 0.99 Sodium 137 (136-148) mmol/L Potassium 4.0 (3.5-5.1) mmol/L Chloride 97 L (98-107) mmol/L Carbon Dioxide 27.0 (21.0-32.0) mmol/L BUN 20 H (7.0-18.0) mg/dL Creatinine 1.5 H (0.8-1.3) mg/dL Est Cr Clr Drug Dosing 53.55 mL/min Estimated GFR (MDRD) 48.6 ml/min Glucose 122 H (74-106) mg/dL Calcium 9.3 (8.5-10.1) mg/dL Magnesium 2.4 (1.8-2.4) mg/dL Total Bilirubin 0.4 (0.2-1.0) mg/dL AST 39 H (15-37) IU/L ALT 48 (14-63) IU/L Alkaline Phosphatase 121 H (46-116) U/L Troponin I < 0.050 (0.000-0.056) ng/mL Total Protein 8.3 H (6.4-8.2) g/dL Albumin 4.4 (3.4-5.0) g/dL Globulin 3.9 H (2.0-3.5) g/dL Albumin/Globulin Ratio 1.1 L (1.3-2.8) TSH 3rd Generation 2.98 (0.36-3.74) uIU/mL Urine Color Urine Appearance Urine pH (5.0-8.0) Ur Specific Benedict (1.001-1.035) Urine Protein (NEGATIVE) mg/dL Urine Glucose (UA) (NEGATIVE) mg/dL Urine Ketones (NEGATIVE) mg/dL Urine Occult Blood (NEGATIVE) Urine Nitrite (NEGATIVE) Urine Bilirubin (NEGATIVE) Urine Urobilinogen (<2.0) EU/dL Ur Leukocyte Esterase (NEGATIVE) Digoxin 0.6 L (0.9-2.0) ng/mL Ethyl Alcohol <3 mg/dL 07/04/18 Range/Units 14:00 WBC (4.0-11.0) K/uL RBC (4.50-5.90) M/uL Hgb (13.0-17.0) g/dL Hct (38.0-50.0) % MCV (80.0-98.0) fL MCH (27.0-32.0) pg MCHC (31.0-37.0) g/dL RDW Std Deviation (28.0-62.0) fl RDW Coeff of Adali (11.0-15.0) % Plt Count (150-400) K/uL MPV (7.40-12.00) fL Neut % (Auto) (48.0-80.0) % Lymph % (Auto) (16.0-40.0) % Whitman % (Auto) (0.0-15.0) % Eos % (Auto) (0.0-7.0) % Baso % (Auto) (0.0-1.5) % Neut # (Auto) (1.4-5.7) K/uL Lymph # (Auto) (0.6-2.4) K/uL Whitman # (Auto) (0.0-0.8) K/uL Eos # (Auto) (0.0-0.7) K/uL Baso # (Auto) (0.0-0.1) K/uL Nucleated RBC % /100WBC Nucleated RBCs # K/uL INR Sodium (136-148) mmol/L Potassium (3.5-5.1) mmol/L Chloride (98-107) mmol/L Carbon Dioxide (21.0-32.0) mmol/L BUN (7.0-18.0) mg/dL Creatinine (0.8-1.3) mg/dL Est Cr Clr Drug Dosing mL/min Estimated GFR (MDRD) ml/min Glucose (74-106) mg/dL Calcium (8.5-10.1) mg/dL Magnesium (1.8-2.4) mg/dL Total Bilirubin (0.2-1.0) mg/dL AST (15-37) IU/L ALT (14-63) IU/L Alkaline Phosphatase (46-116) U/L Troponin I (0.000-0.056) ng/mL Total Protein (6.4-8.2) g/dL Albumin (3.4-5.0) g/dL Globulin (2.0-3.5) g/dL Albumin/Globulin Ratio (1.3-2.8) TSH 3rd Generation (0.36-3.74) uIU/mL Urine Color YELLOW Urine Appearance CLEAR Urine pH 6.0 (5.0-8.0) Ur Specific Benedict 1.025 (1.001-1.035) Urine Protein TRACE (NEGATIVE) mg/dL Urine Glucose (UA) NEGATIVE (NEGATIVE) mg/dL Urine Ketones 40 H (NEGATIVE) mg/dL Urine Occult Blood NEGATIVE (NEGATIVE) Urine Nitrite NEGATIVE (NEGATIVE) Urine Bilirubin SMALL H (NEGATIVE) Urine Urobilinogen 0.2 (<2.0) EU/dL Ur Leukocyte Esterase NEGATIVE (NEGATIVE) Digoxin (0.9-2.0) ng/mL Ethyl Alcohol mg/dL Meds: Medications Generic Name Dose Route Start Last Admin Trade Name Freq PRN Reason Stop Dose Admin Multivitamins/Minerals 10 ml/ 1,015.2 mls @ 150 mls/hr 07/04/18 13:01 13:24 Thiamine HCl 100 mg/ Folic IV 07/04/18 19:47 150 mls/hr Acid 1 mg/ Magnesium Sulfate 2 ONETIME ONE Administration gm/ Sodium Chloride Sodium Chloride 10 ml 07/04/18 13:01 Saline Flush FLUSH ASDIRECTED PRN Keep Vein Open Sodium Chloride 2.5 ml 07/04/18 13:01 Saline Flush FLUSH ASDIRECTED PRN Keep Vein Open Discontinued Medications Generic Name Dose Route Start Last Admin Trade Name Savannah PRN Reason Stop Dose Admin Aspirin 324 mg 07/04/18 13:08 07/04/18 13:31 Aspirin PO 07/04/18 13:09 324 mg ONETIME ONE Administration Sodium Chloride 1,000 mls @ 999 mls/hr 07/04/18 13:01 07/04/18 13:08 Normal Saline IV 07/04/18 14:01 999 mls/hr STAT ONE Administration Departure - Departure Time of Disposition: 14:30 Disposition: Home, Self-Care 01 Condition: Good Clinical Impression: Generalized weakness, Dehydration - Discharge Information Forms: ED Department Discharge Additional Instructions: The following information is given to patients seen in the emergency department who are being discharged to home. This information is to outline your options for follow-up care. We provide all patients seen in our emergency department with a follow-up referral. The need for follow-up, as well as the timing and circumstances, are variable depending upon the specifics of your emergency department visit. If you don't have a primary care physician on staff, we will provide you with a referral. We always advise you to contact your personal physician following an emergency department visit to inform them of the circumstance of the visit and for follow-up with them and/or the need for any referrals to a consulting specialist. The emergency department will also refer you to a specialist when appropriate. This referral assures that you have the opportunity for followup care with a specialist. All of these measure are taken in an effort to provide you with optimal care, which includes your followup. Under all circumstances we always encourage you to contact your private physician who remains a resource for coordinating your care. When calling for followup care, please make the office aware that this follow-up is from your recent emergency room visit. If for any reason you are refused follow-up, please contact the [facility] emergency department at and ask to speak to the emergency department charge nurse. [facility] Primary care- [place] [address] These contact the clinic and see a provider for follow-up care as we discussed and continue all of your home medications. Continue to push hydration as you are mildly dehydrated today and continue to refrain from alcohol and caffeine use. Return to ER as needed and as discussed. - My Orders Last 24 Hours: My Active Orders 07/04/18 12:59 Blood Glucose Check, Bedside [RC] ONETIME Cardiac Monitoring [RC] . DIRECTED EKG Documentation Completion [RC] STAT Oxygen Therapy, ED [RC] ASDIRECTED Pulse Oximetry [RC] ASDIRECTED Saline Lock Insert [OM.PC] Stat 07/04/18 13:01 MVI, Adult with Vitamin K [Infuvite Adult] 10 ml Thiamine [Vitamin B-1] 100 mg Folic Acid 1 mg Magnesium Sulfate [Magnesium Sulfate 50%] 2 gm Sodium Chloride 0.9% [Normal Saline] 1,000 ml IV ONETIME Sodium Chloride 0.9% [Saline Flush] 10 ml FLUSH ASDIRECTED PRN Sodium Chloride 0.9% [Saline Flush] 2.5 ml FLUSH ASDIRECTED PRN 07/04/18 14:00 UA W/MICROSCOPIC [URIN] Stat - Assessment/Plan Last 24 Hours: My Active Orders 07/04/18 12:59 Blood Glucose Check, Bedside [RC] ONETIME Cardiac Monitoring [RC] . DIRECTED EKG Documentation Completion [RC] STAT Oxygen Therapy, ED [RC] ASDIRECTED Pulse Oximetry [RC] ASDIRECTED Saline Lock Insert [OM.PC] Stat 07/04/18 13:01 MVI, Adult with Vitamin K [Infuvite Adult] 10 ml Thiamine [Vitamin B-1] 100 mg Folic Acid 1 mg Magnesium Sulfate [Magnesium Sulfate 50%] 2 gm Sodium Chloride 0.9% [Normal Saline] 1,000 ml IV ONETIME Sodium Chloride 0.9% [Saline Flush] 10 ml FLUSH ASDIRECTED PRN Sodium Chloride 0.9% [Saline Flush] 2.5 ml FLUSH ASDIRECTED PRN 07/04/18 14:00 UA W/MICROSCOPIC [URIN] Stat
[2018-07-04] MEDS ORDERED: Aspirin 81 MG Tab.Chew PO ONE (13:08)
[2018-07-04 13:51] LABS: CHLORIDE,CL 97 mmol/L (98-107); SODIUM,NA 137 mmol/L (136-148)
--- NOTE | 2018-07-04 13:57 | CR ---
EXAM DATE: 07/04/18 PATIENT'S AGE: 53 Patient: ROMAN PRITCHARD Facility: [place], [place] Site . Site : [id number] Study: XRay Chest [id number] 1:22:20 PM Ordering Physician: Shruthi Greenberg Final Report: CHEST 1 VIEW AP INDICATION: Chest pain. Short of breath. IMPRESSION: Normal heart size and vascular pattern. Lungs are clear. No pneumothorax or pleural abnormality. ECG Monitor leads projected over the patient. No change previous exam 06/05/2018. Dictated by Sandro Johnson MD @ Jul 04 2018 1:22PM (Electronic Signature) Report Signed by Proxy. TETE
== END 2018-07-04 15:00 | disposition home or self-care (01) ==
LOC: MW.ED 12:46
DX: E86.0 Dehydration (principal); R53.1 Weakness; R53.81 Other malaise; R07.9 Chest pain, unspecified; I48.91 Unspecified atrial fibrillation; Z79.899 Other long term (current) drug therapy
CPT/HCPCS: 71045; 80053; 80162; 81001; 83735; 84443; 84484; 85025; 85610; 93005; 96365; 99285; A9270; G0480; J3411; J3475; J7040